=== PATIENT | male | born 1960 | race Caucasian/White ===

== ENCOUNTER 2018-05-28 12:11 | Emergency (ER) | payer BC ==
[2018-05-28 12:30] VITALS: TEMP 97.8
[2018-05-28] MEDS ORDERED: TETANUS,DIPHTHERIA,PERTUSSIS 1 EA SYG IM ONE (12:30)
[2018-05-28] MEDS ORDERED: cefTRIAXone SODIUM 1 GM VIAL IM ONE (12:30)
[2018-05-28] MEDS ORDERED: LIDOCAINE 1% 10 ML VIAL INJ ONE (12:32)
--- NOTE | 2018-05-28 12:36 | ED.PDOC ---
History of Present Illness - General Chief Complaint: Laceration Stated Complaint: laceration to leg left Time Seen by Provider: 05/28/18 12:36 Source: patient Exam Limitations: no limitations - History of Present Illness Initial Comments: Kan Pretty 58 y/o male stated he hit something sharp with his left leg while moving his refrigerator at home last night.no active bleeding ,pain injury site. Timing/Duration: yesterday Severity: moderate Location: extremities - left leg Improving Factors: movement Worsening Factors: rest Associated Symptoms: other - see hpi Allergies/Adverse Reactions: Allergies Penicillins Allergy (Verified 05/28/18 12:29) Home Medications: Ambulatory Orders Acetamin W/Cod #3 Tab [Tylenol w/CODEINE #3] 1 ea PO TID PRN #14 tab 05/28/18 Azithromycin [Zithromax Z-Ryne] 250 mg PO DAILY 6 Days #6 tab 05/28/18 Nebivolol HCl [Bystolic] 10 mg PO DAILY 05/28/18 Review of Systems - Review of Systems Constitutional: States: no symptoms reported EENTM: States: no symptoms reported Respiratory: States: no symptoms reported Cardiology: States: no symptoms reported Skin: States: see HPI Past Medical History (General) - Patient Medical History Hx Stroke: No Hx Congestive Heart Failure: No Hx Hypertension: Yes Hx Diabetes: No Surgical History: no surgical history - Vaccination History Hx Tetanus, Diphtheria Vaccination: - unknown Hx Influenza Vaccination: Yes - Social History Hx Tobacco Use: Yes Family Medical History - Family History Father Family History: Unknown Living Status: Unknown Physical Exam - Physical Exam General Appearance: Alert, Comfortable, No apparent distress Eyes, Ears, Nose, Throat Exam: normal ENT inspection Neck: non-tender, supple Cardiovascular/Chest: normal peripheral pulses, regular rate, rhythm, no murmur Respiratory: chest non-tender, lungs clear Gastrointestinal/Abdominal: normal bowel sounds, non tender, soft, no organomegaly Back Exam: normal inspection Extremity: no pedal edema, no calf tenderness Neurologic: no motor/sensory deficits, alert, oriented x 3 Skin Exam: warm/dry, normal color Skin Problem Location: lower extremities - left leg Skin Character: other - laceration left leg 6.5 cms gaping Lymphatic: no adenopathy Progress - Progress Progress: 05/28/18 13:52 Vital Signs - 8 hr 05/28/18 12:25 Temperature 97.8 F Pulse Rate [ 83 Left Brachial] Respiratory 16 Rate Blood Pressure 143/102 [Left Arm] O2 Sat by Pulse 96 Oximetry Procedures - Laceration/Wound Repair Left Calf Wound Length (cm): 6.5 Wound's Depth, Shape: superficial, irregular Wound Explored: no foreign body removed Irrigated w/ Saline (cc's): 50 Betadine Prep?: No - hibiclens Volume Anesthetic (cc's): 12 Wound Debrided: minimal Wound Repaired With: sutures Suture Size/Type: 3:0, prolene Number of Sutures: 14 Layer Closure?: No Sterile Dressing Applied?: Yes Departure - Departure Clinical Impression: Laceration of left leg excluding thigh Qualifiers: Encounter type: initial encounter Qualified Code(s): S81.812A - Laceration without foreign body, left lower leg, initial encounter Time of Disposition: 14:56 Disposition: Discharge to Home or Self Care Departure Forms: ED Discharge - Pt. Copy, Patient Portal Self Enrollment Instructions: DI for Laceration Repair, DI for Laceration Repair -- Complex Suture, DI for Wound Infection Referrals: TOMAS LYNN [Primary Care Provider] - 1-2 Weeks Prescriptions: Acetamin W/Cod #3 Tab [Tylenol w/CODEINE #3] 1 ea PO TID PRN #14 tab PRN Reason: Pain Azithromycin [Zithromax Z-Ryne] 250 mg PO DAILY 6 Days #6 tab Home Medications: Ambulatory Orders Acetamin W/Cod #3 Tab [Tylenol w/CODEINE #3] 1 ea PO TID PRN #14 tab 05/28/18 Azithromycin [Zithromax Z-Ryne] 250 mg PO DAILY 6 Days #6 tab 05/28/18 Nebivolol HCl [Bystolic] 10 mg PO DAILY 05/28/18 Additional Instructions: Return to ER as needed;Removal of sutures 09 June 2018-[facility]
[2018-05-28] MEDS ORDERED: CHLORHEXIDINE GLUCONATE 4 % 15 ML UD TOP ONE (14:05)
[2018-05-28 15:17] VITALS: BP 139/99; O2SAT 94
== END 2018-05-28 15:25 | disposition home or self-care (01) ==
LOC: ER 12:11
DX: S81.812A Laceration without foreign body, left lower leg, initial encounter (principal); I10 Essential (primary) hypertension; W45.8XXA Other foreign body or object entering through skin, initial encounter; Y93.89 Activity, other specified; Y92.009 Unspecified place in unspecified non-institutional (private) residence as the place of occurrence of the external cause; Z88.0 Allergy status to penicillin
CPT/HCPCS: 90471; 90715; J0696